=== PATIENT | female | born 1975 | race Hispanic/Latino ===

== ENCOUNTER 2019-08-07 11:41 | Emergency (ER) | payer BC ==
[2019-08-07] MEDS ORDERED: NA CHLORIDE 0.9% 1,000 ML ONE (12:12)
[2019-08-07 12:15] LABS: Urine Blood NEGATIVE (NEG); Urine Glucose NEGATIVE (NEG); Urine Protein NEGATIVE (NEG); Urine Specific Gravity 1.025 (1.005-1.030)
[2019-08-07 12:18] LABS: Absolute Lymphocytes (CBC) 2.5 K/uL (0.7-4.9); Hematocrit 33.2 % (36.0-45.0); Lymphocytes % 29.2 % (15.3-44.8); MPV 8.8 fL (7.6-11.3); RBC Red Blood Cell Count 4.52 M/uL (3.86-4.86)
[2019-08-07 12:38] LABS: ALT/SGPT 19 U/L (12-78); AST/SGOT 9 U/L (15-37); Albumin 4.1 g/dL (3.4-5.0); Alkaline Phosphatase 89 U/L (45-117); BUN Blood Urea Nitrogen 10 mg/dL (7-18); Bicarbonate 25 mmol/L (21-32); Bilirubin Direct < 0.1 mg/dL (0-0.2); Bilirubin Total 0.4 mg/dL (0.2-1.0); Glucose Level 98 mg/dL (74-106); Magnesium 2.2 mg/dL (1.8-2.4); NT PRO-BNP 58 pg/mL (<125); Potassium 3.5 mmol/L (3.5-5.1); Protein, Total 7.9 g/dL (6.4-8.2); Sodium Level 137 mmol/L (136-145); Troponin (Emerg Dept Use Only) < 0.02 ng/mL (0.0-0.045)
--- NOTE | 2019-08-07 12:51 | RAD REPORT ---
EXAM DESCRIPTION: RAD - Chest Single View - 08/07/2019 12:42 pm CLINICAL HISTORY: Chest pain;Palpitations Chest pain. COMPARISON: CHEST PA AND LAT 2 VIEW dated 02/09/2012 FINDINGS: Portable technique limits examination quality. The lungs are grossly clear. The heart is normal in size. No displaced fractures. IMPRESSION: No acute intrathoracic process suspected.
--- NOTE | 2019-08-07 13:38 | ER ---
Nurse's Notes [facility] Name: Angus Cordero Age: 43 yrs Sex: Female : 1975 Arrival Date: 08/07/2019 Time: 11:39 Bed 6 Private MD: Diagnosis: Chest pain, unspecified;Palpitations Presentation: 08/07 11:40 Presenting complaint: Patient states: Intermittent SOB and palpitations for a few jl7 months, happened this morning and HR remained elevated. Transition of care: patient was not received from another setting of care. Onset of symptoms was August 07, 2019. Risk Assessment: Do you want to hurt yourself or someone else? Patient reports no desire to harm self or others. Initial Sepsis Screen: Does the patient meet any 2 criteria? No. Patient's initial sepsis screen is negative. Does the patient have a suspected source of infection? No. Patient's initial sepsis screen is negative. Care prior to arrival: None. 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 - Social history:: Smoking status: Patient denies any tobacco usage or history of. - Ebola Screening: : No symptoms or risks identified at this time. - Family history:: not pertinent. - Hospitalizations: : No recent hospitalization is reported. Screenin:32 Abuse screen: Denies threats or abuse. Denies injuries from another. Nutritional jl7 screening: No deficits noted. Tuberculosis screening: No symptoms or risk factors identified. Fall Risk IV access (20 points). Total Silva Fall Scale indicates No Risk (0-24 pts). Assessment: 11:40 General: Appears in no apparent distress. uncomfortable, Behavior is calm, cooperative, jl7 appropriate for age. Pain: Complains of pain in anterior aspect of left upper chest Pain does not radiate. Pain currently is 0 out of 10 on a pain scale. at worst was 5 out of 10 on a pain scale. Quality of pain is described as pressure, squeezing, Pain began uknown Is intermittent. Neuro: Level of Consciousness is awake, alert, obeys commands, Oriented to person, place, time, situation. Cardiovascular: Patient's skin is warm and dry. Respiratory: Airway is patent Respiratory effort is even, unlabored, Respiratory pattern is regular, symmetrical. GI: No signs and/or symptoms were reported involving the gastrointestinal system. : No signs and/or symptoms were reported regarding the genitourinary system. EENT: No signs and/or symptoms were reported regarding the EENT system. Derm: Skin is pink, warm \T\ dry. Musculoskeletal: No signs and/or symptoms reported regarding the musculoskeletal system. 12:40 Reassessment: Patient appears in no apparent distress at this time. No changes from jl7 previously documented assessment. Patient and/or family updated on plan of care and expected duration. Pain level reassessed. Patient is alert, oriented x 3, equal unlabored respirations, skin warm/dry/pink. Vital Signs: 11:40 BP 134 / 88; Pulse 110; Resp 18 S; Pulse Ox 100% on R/A; jl7 13:00 BP 125 / 75; Pulse 82; Resp 20 S; Pulse Ox 100% on R/A; jl7 ED Course: 11:39 Patient arrived in ED. aa5 11:39 Jesus Figueroa MD is Attending Physician. me2 11:39 EKG completed in triage. Results shown to MD. aa5 11:40 Raul Garcia, ROLAN is Primary Nurse. jl7 11:40 Attending Physician role handed off by Jesus Figueroa MD rn 11:40 Chris Tirado MD is Attending Physician. rn 11:40 Patient has correct armband on for positive identification. Placed in gown. Bed in low jl7 position. Call light in reach. Side rails up X 1. clinical research monitor on. Pulse ox on. NIBP on. 11:50 Initial lab(s) drawn, by me, sent to lab. Urine collected: clean catch specimen, clear. jl7 Inserted saline lock: 20 gauge in left antecubital area, using aseptic technique. Blood collected. Patient maintains SpO2 saturation greater than 95% on room air. 12:19 Triage completed. jl7 12:33 Arm band placed on right wrist. jl7 12:42 XRAY Chest (1 view) In Process Unspecified. EDMS 13:37 Geovanny Ramirez MD is Referral Physician. rn 13:52 No provider procedures requiring assistance completed. IV discontinued, intact, jl7 bleeding controlled, No redness/swelling at site. Pressure dressing applied. Administered Medications: 12:16 Drug: NS 0.9% 1000 ml Route: IV; Rate: 1000 ml; Site: left antecubital; jl7 13:00 Follow up: IV Status: Completed infusion; IV Intake: 1000ml jl7 Intake: 13:00 IV: 1000ml; Total: 1000ml. jl7 Outcome: 13:37 Discharge ordered by MD. rn 13:52 Discharged to home ambulatory. jl7 13:52 Condition: stable 13:52 Discharge instructions given to patient, Instructed on discharge instructions, follow up and referral plans. Demonstrated understanding of instructions, follow-up care. 13:52 Patient left the ED. jl7 Signatures: Dispatcher [employer] EDMS Chris Tirado MD MD rn Calderon, Audri, RN RN aa5 Raul Garcia RN RN jl7 Jesus Figueroa MD MD ma2
--- NOTE | 2019-08-07 13:39 | EDPHYS ---
Physician Documentation [facility] Name: Angus Cordero Age: 43 yrs Sex: Female : 1975 Arrival Date: 08/07/2019 Time: 11:39 Bed 6 Private MD: ED Physician Chris Tirado HPI: 08/07 12:31 This 43 yrs old Female presents to ER via Ambulatory with complaints of Chest rn Pain. 12:31 The patient or guardian reports chest pain that is located primarily in the substernal rn area. Onset: 2 month(s) ago. The pain does not radiate. Associated signs and symptoms: Pertinent positives: palpitations, shortness of breath, Pertinent negatives: abdominal pain, cough, lower extremity swelling, syncope, vomiting. The chest pain is described as dull, a heaviness. Duration: The patient or guardian reports multiple episodes, that are intermittent. Modifying factors: The symptoms are alleviated by nothing. the symptoms are aggravated by nothing. Severity of pain: At its worst the pain was mild in the emergency department the pain is unchanged. The patient has not experienced similar symptoms in the past. Reports 2 months of chest pain/heaviness, assoc with palpitations, lasts for short amount of time and goes away on its own, also reports fatigue and nocturia for a few weeks, no fever. No meds, and has not been worked up for this in past, feels like getting worse. No syncope. . 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 - Social history:: Smoking status: Patient denies any tobacco usage or history of. - Ebola Screening: : No symptoms or risks identified at this time. - Family history:: not pertinent. - Hospitalizations: : No recent hospitalization is reported. ROS: 12:31 Constitutional: Negative for fever, chills, and weight loss, Eyes: Negative for injury, rn pain, redness, and discharge, Cardiovascular: Negative for edema, + chest pain and palpitations Respiratory: Negative for cough, wheezing, and pleuritic chest pain, Abdomen/GI: Negative for abdominal pain, nausea, vomiting, diarrhea, and constipation, : + nocturia MS/Extremity: Negative for injury and deformity, Skin: Negative for injury, rash, and discoloration, Neuro: Negative for headache, weakness, numbness, tingling, and seizure. Exam: 12:31 Constitutional: This is a well developed, well nourished patient who is awake, alert, rn and in no acute distress. Head/Face: Normocephalic, atraumatic. ENT: dry MM Cardiovascular: tachycardic, regular Respiratory: Lungs have equal breath sounds bilaterally, clear to auscultation. No increased work of breathing, no retractions or nasal flaring. Skin: Warm, dry MS/ Extremity: Pulses equal, no cyanosis. Neuro: Awake and alert, GCS 15. Cranial nerves II-XII grossly intact. Motor strength 5/5 in all extremities. Sensory grossly intact. 13:23 ECG was reviewed by the Attending Physician. rn Vital Signs: 11:40 BP 134 / 88; Pulse 110; Resp 18 S; Pulse Ox 100% on R/A; jl7 13:00 BP 125 / 75; Pulse 82; Resp 20 S; Pulse Ox 100% on R/A; jl7 MDM: 11:39 Patient medically screened. ma2 13:35 Differential diagnosis: acute pericarditis, anxiety, chest wall pain, costochondritis, rn esophagitis, gastritis, gastroesophageal reflux disease (GERD), hiatal hernia, pleurisy, pulmonary embolus, stable angina. Data reviewed: vital signs, nurses notes, lab test result(s), EKG, radiologic studies, plain films, and as a result, I will discharge patient. Test interpretation: by ED physician or midlevel provider: ECG, plain radiologic studies, CXR neg for acute abnormality. Counseling: I had a detailed discussion with the patient and/or guardian regarding: the historical points, exam findings, and any diagnostic results supporting the discharge/admit diagnosis, lab results, radiology results, the need for outpatient follow up, to return to the emergency department if symptoms worsen or persist or if there are any questions or concerns that arise at home. Response to treatment: the patient's symptoms have markedly improved after treatment, and as a result, I will discharge patient. Special discussion: I discussed with the patient/guardian in detail that at this point there is no indication for admission to the hospital. It is understood, however, that if the symptoms persist or worsen the patient needs to return immediately for re-evaluation. Based on the history and exam findings, there is no indication for further emergent testing or inpatient evaluation. I discussed with the patient/guardian the need to see the gunner mate for further evaluation of the symptoms. I discussed with the patient/guardian the need to see the driller hand for further evaluation of the symptoms. I discussed with the patient/guardian the need to see the OB Gyne specialist for further evaluation of the symptoms. 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 Will dc home, feels better, recommend antacid medication and reeval.. 08/07 11:53 Order name: Basic Metabolic Panel; Complete Time: 12:45 rn 08/07 11:53 Order name: CBC with Diff; Complete Time: 12:45 rn 08/07 11:53 Order name: LFT's; Complete Time: 12:45 rn 08/07 11:53 Order name: Magnesium; Complete Time: 12:45 rn 08/07 11:53 Order name: NT PRO-BNP; Complete Time: 12:45 rn 08/07 11:53 Order name: Troponin (emerg Dept Use Only); Complete Time: 12:45 rn 08/07 11:53 Order name: XRAY Chest (1 view); Complete Time: 13:06 rn 08/07 11:53 Order name: EKG; Complete Time: 11:55 rn 08/07 11:53 Order name: D-Dimer; Complete Time: 12:45 rn 08/07 11:53 Order name: TSH; Complete Time: 12:45 rn 08/07 11:53 Order name: T4 Free; Complete Time: 12:45 rn 08/07 12:07 Order name: Urine Dipstick--Ancillary (enter results); Complete Time: 12:45 bd 08/07 12:07 Order name: Urine --Ancillary (enter results); Complete Time: 12:45 bd 08/07 11:53 Order name: Cardiac monitoring; Complete Time: 12: rn 08/07 11:53 Order name: EKG - Nurse/Tech; Complete Time: 12: rn 08/07 11:53 Order name: IV Saline Lock; Complete Time: 12: rn 08/07 11:53 Order name: Labs collected and sent; Complete Time: 12: rn 08/07 11:53 Order name: O2 Per Protocol; Complete Time: : rn 08/07 11:53 Order name: O2 Sat Monitoring; Complete Time: 12: rn EC:23 Rate is 107 beats/min. Rhythm is regular. QRS [place] is Normal. NM interval is normal. rn QRS interval is normal. QT interval is normal. No Q waves. T waves are Normal. No ST changes noted. Clinical impression: Sinus tachycardia. Interpreted by me. Reviewed by me. Administered Medications: 12:16 Drug: NS 0.9% 1000 ml Route: IV; Rate: 1000 ml; Site: left antecubital; jl7 13:00 Follow up: IV Status: Completed infusion; IV Intake: 1000ml jl7 Disposition: 08/07/19 13:37 Discharged to Home. Impression: Chest pain, unspecified, Palpitations. - Condition is Stable. - Discharge Instructions: Nonspecific Chest Pain, Esophagitis, Pain Without a Known Cause, Palpitations. - Medication Reconciliation Form, Thank You Letter, Antibiotic Education, Prescription Opioid Use form. - Follow up: Geovanny Ramirez MD; When: As needed; Reason: Recheck today's complaints, Re-evaluation by your physician. - Problem is an ongoing problem. - Symptoms have improved. Signatures: Dispatcher [employer] EDMS Chris Tirado MD MD rn Leal, Jahala, RN RN jl7 Jesus Figueroa MD MD ma2 Corrections: (The following items were deleted from the chart) 12:38 12:31 Constitutional: This is a well developed, well nourished patient who is awake, rn alert, and in no acute distress. Head/Face: Normocephalic, atraumatic. ENT: dry MM Cardiovascular: tachycardic, regular Respiratory: Lungs have equal breath sounds bilaterally, clear to auscultation. No increased work of breathing, no retractions or nasal flaring. Skin: Warm, dry MS/ Extremity: Pulses equal, no cyanosis. Neuro: Awake and alert, GCS 15. Cranial nerves II-XII grossly intact. Motor strength 5/5 in all extremities. Sensory grossly intact. rn 13:52 13:37 08/07/2019 13:37 Discharged to Home. Impression: Chest pain, unspecified; jl7 Palpitations. Condition is Stable. Forms are Medication Reconciliation Form, Thank You Letter, Antibiotic Education, Prescription Opioid Use. Follow up: Geovanny Ramirez; When: As needed; Reason: Recheck today's complaints, Re-evaluation by your physician. Problem is an ongoing problem. Symptoms have improved. rn
--- NOTE | 2019-08-07 14:48 | EKG ---
Test Date: 2019-08-07 Test Time: 11:32:07 Director Check: MEASUREMENT RESULTS: Intervals: Rate: 107 HI: 146 QRSD: 94 QT: 338 QTc: 451 [place]: P: 74 HI: 146 QRS: 59 T: 54 INTERPRETIVE STATEMENTS: Sinus tachycardia Otherwise normal ECG No previous ECG available for comparison Electronically Signed On 08-07-19 14:48:15 HISTORICAL INTERPRETER by Jono Pratt
[2019-08-07 17:08] VITALS: BP 125/75; O2SAT 100
== END 2019-08-07 13:52 | disposition home or self-care (01) ==
LOC: ER 11:41
DX: R07.9 Chest pain, unspecified (principal); R00.2 Palpitations; Z88.1 Allergy status to other antibiotic agents
CPT/HCPCS: 93005; 85025; 80048; 36415; 83735; 81025; 85379; 80076; 84443; 81003; 84484; 84439; 83880; 71045; 96360; 99285; J7030

== ENCOUNTER 2022-07-30 08:20 | Emergency (ER) | payer BC ==
--- OUTSIDE RECORDS SUMMARY | 2022-07-30 08:23 | XMS REPORT | Continuity of Care Document ---
:1975 Author Organization [facility] t Address [address] [place] [address] Care Team Providers Name Role Phone COSMO Attending Clinician Unavailable Vero Mccoy Attending Clinician Unavailable COSMO Admitting Clinician Unavailable Vero Mccoy Admitting Clinician Unavailable Physician, No Primary or Family Admitting Clinician Unavaila ble Payers Payer Name Policy Type Policy Number Effective Date Expiration Date S ource Problems This patient has no known problems. Allergies, Adverse Reactions, Alerts Allergy Allergy Status Severity Reaction(s) Onset Inactive Treating Comm ents Source Name Type Date Date Clinician ciproflo DA Active SV 2020-0 [facility] xacin 6-01 Clear 00:00: [address] ciproflo DA Active SV RASH AND 2020-0 [facility] xacin WHEEZING 6- Clear 00:00: [address] Medications This patient has no known medications. Procedures This patient has no known procedures. Encounters Start End Encounter Admission Attending Care Care Encounter Source Date/Time Date/Time Type Type Clinicians Facility Department ID 2021-07-21 2021-07-21 Outpatient COSMO [facility] [id number] [place] 12:46:00 12:46:00 [facility] 2020-01-05 2020-01-05 Outpatient ELODIA Mccoy [id number] [facility] 13:54:00 13:54:[address] [address] [facility] 2020-01-05 2020-01-05 Outpatient ALEX Mccoy [facility] [id number] [facility] 09:30:00 09:30:00 Vero Peter [facility] 2019-12-17 2019-12-17 [id number] [facility] 09:00:00 09:00:00 Vero 97 [facility] 2019-12-13 2019-12-13 Outpatient RAUL Mccoy [facility] [id number] [facility] 12:00:00 12:00:00 Vero Heide [facility] Results Test Description Test Time Test Comments Results Result [facility] e Comments UTERUS,OTHER THAN 2020-01-11 PROLAPSE/THOMAS 16:04:00 --------RUN DATE: 01/14/20 [facility] PAGE 1 RUN TIME: 1301 Specimen Inquiry RUN USER: INTERFACE --------PATIENT: GLENDA RODOMI [facility] U #: [id number] AGE/SX: 44/F ROOM: [facility] RE01/08/20REG DR: Vero Mccoy MD : 75 BED: A DIS: 01/09/20 STATUS: DIS Hussain TLOC: -------- SPEC #: [id number] RECD: 01/08/20 STATUS: YONI MARC #: [id number] SAMARIA: 01/08/20- SUBM DR: Vero Mccoy MD ENTERED: 01/09/20 SP TYPE: UTERUSOTH OTHR DR: ORDERED: LEVEL V SURGICA CODES: [id number] - UTERUS, NOS PROCEDURES: LEVEL V SURGICA (Incomplete) TISSUES: UTERUS, NOS - UTERUS, CERVIX, BILATERAL FALLOPIAN TUBES AND OVARIES CLINICAL HISTORY 44 year old, bilateral complex ovarian cyst (wpd) FINAL DIAGNOSIS Uterus, cervix, bilateral fallopian tubes and ovaries, hysterectomy and bilateral salpingo-oophorectomy : - cervix - mild acute and chronic inflammation - endometrium - secretory phase - myometrium - leiomyomas, adenomyosis - uterine serosa - no pathologic alterations - right ovary - hemorrhagic corpus luteum cyst and benign endometriotic cyst - right fallopian tube - no pathologic alterations - left ovary - benign hemorrhagic cyst - left fallopian tube - no pathologic alterations CPT code(s): 31350 pkg/wpd GROSS DESCRIPTION ANATOMIC SOURCE OF TISSUE (per Requisition): Uterus, cervix, bilateral tubes and ovaries The specimen is received in a formalin-filled container, labeled with the patient's name and designated "uterus, cervix, bilateral tubes and ovaries". The specimen consists of a 225 gm, 10.0 x 6.0 x 6.0 cm uterus with cervix (3.5 x 3.5 cm with a 1.5 cm slit-like os), bilateral tubes (6.0 x 0.8 cm right and 5.5 x 0.8 cm left), and bilateral ovaries (5.5 x 5.0 x 4.0 cm right and 7.5 x 5.5 x 4.0 cm left). The serosa is ortiz-pink with red-brown petechiae. The specimen is bivalved to reveal a 4.5 x 3.0 cm ortiz-pink endometrial cavity. The endometrial thickness averages 0.1 cm. The myometrium is ortiz-pink and trabecular CONTINUED ON NEXT PAGE --------RUN DATE: 01/14/20 [facility] PAGE 2 RUN TIME: 1301 Specimen Inquiry RUN USER: INTERFACE --------SPEC #: [id number] PATIENT: GLENDA ROD #[id number] (Continued) GROSS DESCRIPTION (Continued) with three white whorled nodules ranging from 2.5 to 3.0 cm. The nodules do not display necrosis. The endocervix is ortiz-pink and corrugated. The ectocervix is white-pink and dull. The right fallopian tube is pink-purple with fimbriae. Sectioning reveals a pinpoint lumen. The right ovary is ortiz-yellow to boyd and dull. The ovary is sectioned to reveal a 3.5 cm cyst filled with red-brown fluid. The left fallopian tube is ortiz-boyd with fimbriae. Sectioning reveals a pinpoint lumen. A pedunculated paratubal cyst measuring 1.5 cm is identified. The left ovary is ortiz-pink and dull. The ovary is sectioned to reveal mucinous ortiz-yellow fluid. The inner lining is smooth. Medical Numerical Control Operator sections are submitted as follows: A1 - anterior cervix and employer relations representative section of smaller white whorled nodule, A2 - posterior cervix and employer relations representative section of small white whorled nodule, A3 - anterior endomyometrium with largest white whorled nodule, full thickness, A4 - posterior endomyometrium, full thickness, A5 - right fallopian tube and ovary, A6 - right ovarian cyst, A7 - left fallopian tube and paratubal cyst, and A8 - employer relations representative section of left ovarian cyst. vernon 01/09/20 MICROSCOPIC DESCRIPTION The cervix has a mild infiltrate of small lymphocytes, plasma cells, and neutrophils. The endometrium is composed of even to haphazardly spaced glands with mild nuclear stratification and few mitotic figures. The myometrium contains foci of adenomyosis and leiomyomas without atypia. The uterine serosa is unremarkable. The right ovary has a hemorrhagic corpus luteum cyst and a benign endometriotic cyst. The left ovary has a benign hemorrhagic cyst. The bilateral fallopian tubes have intact architecture and are lined by serous epithelium without cytologic atypia. paul/maria d Signed Yvette Butts 01/11/20 1604 -------- END OF REPORT HGB HCT 2020-01-09 06:15:00 Test Item Value Reference Range Interpretation Comme nts HEMOGLOBIN (test code = HGB) 9.8 g/dL 10.7-13.9 L HEMATOCRIT (test code = HCT) 32.5 % 32.1-42.1 N Tanesha Cabralesavirus 2019 [id number] 21:28:00 Test Item Value Reference Range Interpretation Comments Novel Coronavirus 2019 Inhouse (test Negative Negative code = COVNONPUI) Novel Coronavirus 2019 [id number] 21:27:00 Test Item Value Reference Range Interpretation Comments Novel Coronavirus 2019 Inhouse (test Negative Negative code = COVNONPUI) PROTHROMBIN [id number] 14:02:00 Test Item Value Reference Range Interpretation Comments PROTHROMBIN TIME PATIENT (test code 11.2 secs 10.4-12.4 N = PTP) THROMBOPLASTIN TIME [id number] 14:02:00 Test Item Value Reference Range Interpretation Comments THROMBOPLASTIN TIME PARTIAL (test 34.2 secs 22-38 N code = PTT) HCG SERUM [id number] 13:33:00 Test Item Value Reference Range Interpretation Comments HCG SERUM QUAL (test code = HCGQL) NEGATIVE CBC W/AUTO [id number] 13:12:00 Test Item Value Reference Range Interpretation Comments WHITE BLOOD CELL (test code = WBC) 7.5 K/mm3 6.6-12.1 N RED BLOOD CELL (test code = RBC) 4.35 M/mm3 3.45-5.01 N HEMOGLOBIN (test code = HGB) 10.6 g/dL 10.7-13.9 L HEMATOCRIT (test code = HCT) 35.0 % 32.1-42.1 N MEAN CELL VOLUME (test code = MCV) 81 fL 84.1-94.8 L MEAN CELL HGB (test code = MCH) 24.4 pg 27-35 L MEAN CELL HGB CONCETRATION (test 30.3 gm/dL 32.2-34.1 L code = MCHC) RED CELL DISTRIBUTION WIDTH (test 15.0 % 12.4-16.5 N code = RDW) PLATELET COUNT (test code = PLT) 413 K/mm3 133-385 H MEAN PLATELET VOLUME (test code = 10.9 fl 9.1-12.7 N MPV) NEUTROPHIL % (test code = NT%) 59.8 % 56.5-79.4 N LYMPHOCYTE % (test code = LY%) 27.6 % 14.3-34.3 N MONOCYTE % (test code = MO%) 7.1 % 5.1-10.4 N EOSINOPHIL % (test code = EO%) 4.3 % 0.1-3.0 H BASOPHIL % (test code = BA%) 1.1 % 0.1-1.0 H NEUTROPHIL # (test code = NT#) 4.5 K/mm3 LYMPHOCYTE # (test code = LY#) 2.1 K/mm3 MONOCYTE # (test code = MO#) 0.5 K/mm3 EOSINOPHIL # (test code = EO#) 0.32 K/mm3 BASOPHIL # (test code = BA#) 0.1 K/mm3 RBC MORPHOLOGY REQUIRED (test code NORMAL NORMAL = RBCM) PLATELET MORPHOLOGY REQUIRED (test NORMAL NORMAL code = PLTMR) - MRI PELVIS W WO [id number] 17:44:00 Patient Name: GLENDA ROD Unit No: [id number] EXAMS: CPT CODE: [id number] MRI PELVIS W WO CONT 53314 CLINICAL HISTORY: Ovarian cyst. COMPARISON: Computed tomography performed on November 18, 2019 and ultrasound examination performed on November 18, 2019. Multiplanar and multisequence MR imaging of the pelvis was performed using 1.5 Kindra magnet. Precontrast images as well as postcontrast images after administration of weight adjusted dose of gadolinium based contrast were performed. Vaginal gel was also administered. Uterus measures 7.3 x 7.2 x 7.3 cm in craniocaudad, AP, and transverse dimension. It has lobulated contours compatible with leiomyomatous involvement. Endometrium measures 10 mm in AP dimension. Junctional zone appears normal. Following uterine fibroids are noted: 1. Left lateral exophytic fibroid 3.0 x 2.7 x 2.3 cm. 2. Anterior intramural/subserosal fibroid 2.4 x 3.0 x 2.8 cm. 3. Anterior lower uterine segment subserosal fibroid 3.4 x 2.7 x 3.4 cm. Right adnexa contains 3.8 x 3.4 x 3.3 cmcystic lesion. It has intermediate signal intensity on T2-weighted images and high signal intensity on T1-weighted fat-saturated images. This is compatible with an endometrioma in this location. No additional lesion is identified in the right adnexa. Left adnexa contains a simple cyst measuring 3.3 x 3.7 x 3.7 cm. Medial and posterior to the above- mentioned simple cyst in the left adnexa extending inthe cul-de-sac, a lobulated cystic mass measuring approximately 4.8 x 4.2 x 6.0 cm is identified. It comprises of multiple components. Posterior mass containing low T2 signal intensity and high T1 signal intensity measures 3.3 x 3.3 x 3.2 cm. Additional 2 areas with intermediate T2 signal intensity and high T1 signal intensity measure 2.2 x 2.8 x 2.4 cm and 4.0 x 3.8 x 3.4 cm. Additional areas of lowT2 signal intensity suspicious for hemosiderin are also present. Findings are most likely those of endometriomas as well as a possible hemorrhage cyst considering accompanying sonographic findings. Postcontrast images demonstrate no areas of abnormal enhancement. No evidence of pelvic adenopathy is noted. Small amount of free fluid is present in the pelvis is a nonspecific finding. IMPRESSION: 1. Multiple uterine fibroids. 2. Probable endometrioma in the right adnexa. 3. Simple cyst in the left adnexa as well as a lobulated complex area most likely representing endometriomas. Other etiologies cannot be categorically excluded. Follow-up ultrasound examination to evaluate for interval change is recommended. 4. Small amount of free fluid in the pelvis. [facility] NAME: MARCELGLENDA FLOWERS Radiology Department PHYS: Vero Carballo MD [address] : 1975 AGE: 44 SEX: F [place], [place] [address] LOC: Ila.RAD PHONE #: [phone] EXAM DATE: 12/17/2019 STATUS: DEP CLI FAX #: [phone] RAD NO: Page 1 Signed Report (CONTINUED) Patient Name: Tennille ROD No: [id number] EXAMS: CPT CODE: [id number] MRI PELVIS W WO CONT 51138 (Continued) at 1744 Reported and signed by: Emmett Garcia MD CC: Vero Mccoy MD Technologist: Lesley Matamoros, RT Trnscrbd D/ (174) Martine Orig Print D/T: S: 12/18/2019 (174) [facility] NAME: MARCELGLENDA Radiology Department PHYS: Vero Carballo MD [address] : 1975 AGE: 44 SEX: F [place] [address] LOC: F.RAD PHONE #: [phone] EXAM DATE: 12/17/2019 STATUS: DEP CLI FAX #: [phone] RAD NO: Page 2 Signed Report- MRI ABDOMEN W WO [id number] 10:03:00 Patient Name: GLENDA ROD Unit No: [id number] EXAMS: CPT CODE: [id number] MRI ABDOMEN W WO CONT [id number] MRI ABDOMEN WITHOUT AND WITH CONTRAST, 12/17/2019 COMPARISON: CT abdomen dated November 18, 2019 CLINICAL HISTORY: OV CYST Technical factors: Multiplanar MR sequencing of the abdomen was performed withoutand with IV contrast administration. FINDINGS: There is a 1 cm nonenhancing cyst in the dome of the right hepatic lobe. No other hepatic lesions are seen. Bilateral breast implants are present. Spleen,pancreas, adrenals and kidneys appear within normal limits. No evidence of hydronephrosis. No free fluid or lymphadenopathy is seen. The gallbladder is present. No gallstones are visualized. No evidence of pericholecystic fluid. Abdominal aorta is normal in caliber. IMPRESSION: No acute abdominal abnormality. Small hepatic cyst. at 1003 Repo rted and signed by: Brady Willett MD CC: Vero Mccoy MD Technologist: Lesley Matamoros, RT Trnscrbd D/ (1003) [email or web address] Orig Print D/T: S: 12/18/2019 (1006) [facility] PHYS: Vero Carballo MD [address] : 1975 AGE: 44 SEX: F [place], [place] [address] LOC: Ila.RAD PHONE #: [phone] EXAM DATE: 12/17/2019 STATUS: DEP CLI FAX #: [phone] RAD NO: Page 1 Signed ReportUR HCG [id number] 09:54:00 Test Item Value Reference Range Interpretation Comments UR HCG QUAL (test NEGATIVE 1. Very di lute urine code = HCGQLU) specimens, as indicated by a lowspecific g ravity, may not contain rep resentative levels ofhCG. 2 . False negative result s may occur when the levels of hCGare below the sensi tivity level of the test. If is still suspec leonie, a first morningurine sp ecimen should be colle cted 48 hours later and tested.
[2022-07-30] MEDS ORDERED: ASPIRIN 81 MG CHEWABLE TABLET ONE (08:35)
[2022-07-30 08:56] LABS: Absolute Lymphocytes (CBC) 2.6 K/uL (0.7-4.9); Lymphocytes % 34.1 % (15.3-44.8); MCV 85.5 fL (80-100); MPV 8.6 fL (7.6-11.3); RBC Red Blood Cell Count 5.03 M/uL (3.86-4.86)
[2022-07-30 09:18] LABS: Bilirubin Total 0.5 mg/dL (0.2-1.0); Magnesium 2.1 mg/dL (1.6-2.4); Potassium 3.8 mmol/L (3.5-5.1); Protein, Total 7.9 g/dL (6.4-8.2)
--- NOTE | 2022-07-30 09:18 | RAD REPORT ---
EXAM DESCRIPTION: US - Abdomen Exam Limited - 07/30/2022 9:01 am CLINICAL HISTORY: PAIN COMPARISON: No comparisons FINDINGS: The gallbladder demonstrates no gallstones. No pericholecystic fluid or gallbladder wall t hickening. The common bile duct is normal measuring 4 mm. The liver demonstrates no findings of intrahepatic biliary dilatation. IMPRESSION: Unremarkable examination.
--- NOTE | 2022-07-30 09:25 | RAD REPORT ---
EXAM DESCRIPTION: RAD - Chest Single View - 07/30/2022 9:19 am CLINICAL HISTORY: CHEST PAIN Chest pain. COMPARISON: Chest Single View dated 08/07/2019; CHEST PA AND LAT 2 VIEW dated 02/09/2012 FINDINGS: Portable technique limits examination quality. The lungs are grossly clear. The heart is normal in size. No displaced fractures. IMPRESSION: No acute intrathoracic process suspected.
[2022-07-30] MEDS ORDERED: MAGNES/ALUMIN/SIMET 30ML UCUP ONE (09:40)
[2022-07-30] MEDS ORDERED: LIDOCAINE VISCOUS 2% SOLN 15 ML UDC ONE (09:40)
[2022-07-30] MEDS ORDERED: PANTOPRAZOLE 40 MG INJ ONE (09:40)
--- NOTE | 2022-07-30 10:00 | RAD REPORT ---
EXAM DESCRIPTION: CT - Chest For Pe Angio - 07/30/2022 9:33 am CLINICAL HISTORY: Chest pain. chest pain COMPARISON: No comparisons TECHNIQUE: CT angiogram of the pulmonary arteries was performed with MIP. All CT scans are performed using dose optimization technique as appropriate and may include automated exposure control or mA/KV adjustment according to patient size. FINDINGS: No evidence of pulmonary thromboembolism. No acute aortic finding demonstrated. The lungs are clear. No significant pericardial or pleural fluid. No concerning bony finding. IMPRESSION: No evidence of pulmonary thromboembolism. No acute lung findings.
[2022-07-30] MEDS ORDERED: METOPROLOL TAR 25 MG TAB ONE (10:34)
--- NOTE | 2022-07-30 10:59 | EDPHYS ---
Physician Documentation [facility] Name: Angus Cordero Age: 46 yrs Sex: Female : 1975 Arrival Date: 07/30/2022 Time: 08:23 Bed 11 Private MD: JULEE Physician Eric Singh HPI: 07/30 10:03 This 46 yrs old Female presents to ER via Ambulatory with complaints of Chest snw Pain. 10:03 The patient or guardian reports chest pain that is located primarily in the epigastric snw area. Onset: acutely, 4 day(s) ago, and became persistent. Onset: The symptoms/episode began/occurred acutely. The pain does not radiate. Associated signs and symptoms: Pertinent positives: gas/burping. Modifying factors: The patient symptoms are alleviated by nothing, the patient symptoms are aggravated by nothing. The chest pain is described as sharp. Duration: The patient or guardian reports multiple episodes, that are intermittent. The patient has experienced a previous episode, approximately 3 years ago. The patient has not recently seen a physician. 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 - Social history:: Smoking status: Patient denies any tobacco usage or history of. ROS: 10:08 Constitutional: Negative for fever, chills, and weight loss, Eyes: Negative for injury, snw pain, redness, and discharge, ENT: Negative for injury, pain, and discharge, Neck: Negative for injury, pain, and swelling. 10:08 Respiratory: Negative for shortness of breath, cough, wheezing, and pleuritic chest pain, Abdomen/GI: Negative for abdominal pain, nausea, vomiting, diarrhea, and constipation, Back: Negative for injury and pain, : Negative for injury, bleeding, discharge, and swelling, MS/Extremity: Negative for injury and deformity, Skin: Negative for injury, rash, and discoloration, Neuro: Negative for headache, weakness, numbness, tingling, and seizure, Psych: Negative for depression, anxiety, suicide ideation, homicidal ideation, and hallucinations. 10:08 Cardiovascular: Positive for chest pain, of the mid-sternal area. Exam: 10:02 Constitutional: This is a well developed, well nourished patient who is awake, alert, snw and in no acute distress. Head/Face: Normocephalic, atraumatic. Eyes: Pupils equal round and reactive to light, extra-ocular motions intact. Lids and lashes normal. Conjunctiva and sclera are non-icteric and not injected. Cornea within normal limits. Periorbital areas with no swelling, redness, or edema. ENT: Nares patent. No nasal discharge, no septal abnormalities noted. Tympanic membranes are normal and external auditory canals are clear. Oropharynx with no redness, swelling, or masses, exudates, or evidence of obstruction, uvula midline. Mucous membranes moist. Neck: Trachea midline, no thyromegaly or masses palpated, and no cervical lymphadenopathy. Supple, full range of motion without nuchal rigidity, or vertebral point tenderness. No Meningismus. Chest/axilla: Normal chest wall appearance and motion. Nontender with no deformity. No lesions are appreciated. Cardiovascular: Regular rate and rhythm with a normal S1 and S2. No gallops, murmurs, or rubs. Normal PMI, no JVD. No pulse deficits. Respiratory: Lungs have equal breath sounds bilaterally, clear to auscultation and percussion. No rales, rhonchi or wheezes noted. No increased work of breathing, no retractions or nasal flaring. Abdomen/GI: Soft, non-tender, with normal bowel sounds. No distension or tympany. No guarding or rebound. No evidence of tenderness throughout. Back: No spinal tenderness. No costovertebral tenderness. Full range of motion. Skin: Warm, dry with normal turgor. Normal color with no rashes, no lesions, and no evidence of cellulitis. MS/ Extremity: Pulses equal, no cyanosis. Neurovascular intact. Full, normal range of motion. Neuro: Awake and alert, GCS 15, oriented to person, place, time, and situation. Cranial nerves II-XII grossly intact. Motor strength 5/5 in all extremities. Sensory grossly intact. Cerebellar exam normal. Normal gait. Psych: Awake, alert, with orientation to person, place and time. Behavior, mood, and affect are within normal limits. Vital Signs: 08:31 BP 152 / 81; Pulse 96; Resp 17; Pulse Ox 100% ; ap3 08:38 Weight 52.16 kg; ap3 09:30 BP 122 / 80; Pulse 75; Resp 15 S; Temp 98.7(TE); Pulse Ox 100% on R/A; Pain 4/10; jl7 10:59 BP 136 / 84; Pulse 70; Resp 15; Pulse Ox 100% ; jl7 11:29 BP 126 / 94; Pulse 75; Resp 15; Pulse Ox 100% ; jl7 MDM: 08:27 Patient medically screened. snw 10:08 HEART Score: History: Slightly Suspicious (0), ECG: Non specific repolarization snw disturbance / LBTB / PM (1), Age: > 45 and < 65 years (1), Risk Factors: No Risk Factors Known (0), Troponin: < or = 1 x Normal Limit (0). The patient was given aspirin in the Emergency Department. Data reviewed: vital signs, nurses notes. Counseling: I had a detailed discussion with the patient and/or guardian regarding: the historical points, exam findings, and any diagnostic results supporting the discharge/admit diagnosis, the presence of at least one elevated blood pressure reading (>120/80) during this emergency department visit, lab results, radiology results, the need for outpatient follow up, to return to the emergency department if symptoms worsen or persist or if there are any questions or concerns that arise at home. Special discussion: Based on the patient's history, exam, and Dx evaluation, there is no indication for emergent intervention or inpatient Tx. It is understood by the patient/guardian that if the Sx's persist or worsen they need to return immediately for re-evaluation. I have referred the patient to see his PCP for further evaluation of high blood pressure. Based on the history and exam findings, there is no indication for further emergent testing or inpatient evaluation. I discussed with the patient/guardian the need to see the primary care provider for further evaluation of the symptoms. 07/30 08:29 Order name: CBC with Diff; Complete Time: 09:02 snw 07/30 08:29 Order name: Magnesium; Complete Time: 09:35 snw 07/30 08:29 Order name: Troponin HS; Complete Time: 09:35 snw 07/30 08:29 Order name: XRAY Chest (1 view); Complete Time: 09:35 snw 07/30 08:29 Order name: CMP; Complete Time: 09:35 snw 07/30 08:29 Order name: Lipase; Complete Time: 09:35 snw 07/30 08:29 Order name: EKG; Complete Time: 08:30 w 07/30 08:29 Order name: Cardiac monitoring; Complete Time: 08:42 snw 07/30 08:29 Order name: US Abdomen Limited; Complete Time: 09:35 snw 07/30 09:10 Order name: CT Chest For PE Angio; Complete Time: 10:01 w 07/30 08:29 Order name: EKG - Nurse/Tech; Complete Time: 08:31 w 07/30 08:29 Order name: IV Saline Lock; Complete Time: 08:42 w 07/30 08:29 Order name: Labs collected and sent; Complete Time: 08:42 w 07/30 08:29 Order name: O2 Per Protocol; Complete Time: 08:36 w 07/30 08:29 Order name: O2 Sat Monitoring; Complete Time: 08:36 snw EC:30 Rate is 83 beats/min. Rhythm is regular. QRS [place] is Normal. AR interval is normal. QRS snw interval is normal. QT interval is normal. No Q waves. T waves are Normal. No ST changes noted. Clinical impression: Normal ECG. Administered Medications: 08:35 Drug: Aspirin Chewable Tablet 324 mg Route: PO; jl7 09:00 Follow up: Response: No adverse reaction jl7 09:28 Drug: ProTONIX (pantoprazole) 40 mg Route: IVP; Site: right antecubital; jl7 10:47 Follow up: Response: No adverse reaction ap3 09:30 Drug: GI Cocktail without - (Maalox Suspension 30 ml, Lidocaine Liquid 2 % 15 jl7 ml) Route: PO; 10:00 Follow up: Response: Pain is decreased jl7 10:47 Follow up: Response: No adverse reaction ap3 10:47 Drug: Metoprolol 12.5 mg Route: PO; ap3 11:00 Follow up: Response: No adverse reaction jl7 Disposition Summary: 07/30/22 10:59 Discharge Ordered Location: Home snw Condition: Stable snw Diagnosis - Chest pain, unspecified snw Followup: snw - With: Emergency Department - When: As needed - Reason: Worsening of condition Followup: snw - With: Private Physician - When: 5 - 6 days - Reason: Recheck today's complaints, Continuance of care, Re-evaluation by your physician Discharge Instructions: - Discharge Summary Sheet snw - Nonspecific Chest Pain, Adult snw - Gastroesophageal Reflux Disease, Adult snw - Hypertension, Adult snw - How to Take Your Blood Pressure, [id number] snw - Aspirin and Your Heart snw - Form - Blood Pressure Record Sheet snw Forms: - Medication Reconciliation Form snw - Thank You Letter snw - Work release form snw - Antibiotic Education snw - Prescription Opioid Use snw Prescriptions: - metoprolol succinate 25 mg Oral tablet extended release 24 hr - take 1 tablet by ORAL route once daily; 90 tablet; Refills: 0, Product snw Selection Permitted - Protonix 40 mg Oral Tablet - take 1 tablet by ORAL route once daily; 30 tablet; Refills: 0, Product snw Selection Permitted Signatures: Dispatcher [employer] Renata Muñoz, MEN'S BASKETBALL COACH-C MEN'S BASKETBALL COACH-Csnw Raul Garcia, RN RN jl7 Nicole Lindquist RN RN ap3
--- NOTE | 2022-07-30 10:59 | ER ---
Nurse's Notes [facility] Name: Angus Cordero Age: 46 yrs Sex: Female : 1975 Arrival Date: 07/30/2022 Time: 08:23 Bed 11 Private MD: Diagnosis: Chest pain, unspecified Presentation: 07/30 08:31 Chief complaint: Patient states: she has been having mid to left chest tightness, where ap3 it feels like a pill is stuck and sometimes it feels like "something is squeezing my heart" for approx 8 days. Coronavirus screen: At this time, the client does not indicate any symptoms associated with coronavirus-19. Ebola Screen: No symptoms or risks identified at this time. Initial Sepsis Screen: Does the patient meet any 2 criteria? No. Patient's initial sepsis screen is negative. Does the patient have a suspected source of infection? No. Patient's initial sepsis screen is negative. Risk Assessment: Do you want to hurt yourself or someone else? Patient reports no desire to harm self or others. Onset of symptoms was July 22, 2022. 08:31 Method Of Arrival: Ambulatory ap3 08:31 Acuity: JAH 3 ap3 Triage Assessment: 08:34 General: Appears uncomfortable, Behavior is cooperative, appropriate for age. Pain: ap3 Complains of pain in anterior aspect of left upper chest and mid-sternal area Quality of pain is described as crampy, squeezing, "like something is stuck" Pain began approx 8 days ago. Neuro: Level of Consciousness is awake, alert, obeys commands, Oriented to person, place, time, situation, Moves all extremities. Gait is steady, Speech is normal. Cardiovascular: Reports chest pain, Patient's skin is warm and dry. Respiratory: Airway is patent Respiratory effort is even, unlabored, Respiratory pattern is regular, symmetrical. 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 - Social history:: Smoking status: Patient denies any tobacco usage or history of. Screenin:35 [facility] ED Fall Risk Assessment (Adult) History of falling in the last 3 months, ap3 including since admission No falls in past 3 months (0 pts). Abuse screen: Denies threats or abuse. Nutritional screening: No deficits noted. Tuberculosis screening: No symptoms or risk factors identified. Assessment: 08:30 General: Appears in no apparent distress. uncomfortable, Behavior is calm, cooperative, jl7 appropriate for age. Pain: Complains of pain in epigastric area and right upper quadrant Pain does not radiate. Pain currently is 4 out of 10 on a pain scale. Quality of pain is described as pressure, Pain began x8 days Is intermittent. Neuro: Level of Consciousness is awake, alert, obeys commands, Oriented to person, place, time, situation. Cardiovascular: Patient's skin is warm and dry. Respiratory: Airway is patent Respiratory effort is even, unlabored, Respiratory pattern is regular, symmetrical. GI: Abdomen is non-distended, Patient currently denies diarrhea, nausea, vomiting. Derm: Skin is pink, warm \\T\\ dry. 08:36 Pain: Pain does not radiate. ap3 09:30 Reassessment: Patient appears in no apparent distress at this time. No changes from jl7 previously documented assessment. Patient and/or family updated on plan of care and expected duration. Pain level reassessed. Patient is alert, oriented x 3, equal unlabored respirations, skin warm/dry/pink. 10:30 Reassessment: Patient appears in no apparent distress at this time. Patient and/or jl7 family updated on plan of care and expected duration. Pain level reassessed. Patient is alert, oriented x 3, equal unlabored respirations, skin warm/dry/pink. Reports mild decrease in pain, dulled after medication Patient states symptoms have improved. Vital Signs: 08:31 BP 152 / 81; Pulse 96; Resp 17; Pulse Ox 100% ; ap3 08:38 Weight 52.16 kg; ap3 09:30 BP 122 / 80; Pulse 75; Resp 15 S; Temp 98.7(TE); Pulse Ox 100% on R/A; Pain 4/10; jl7 10:59 BP 136 / 84; Pulse 70; Resp 15; Pulse Ox 100% ; jl7 11:29 BP 126 / 94; Pulse 75; Resp 15; Pulse Ox 100% ; jl7 ED Course: 08:23 Patient arrived in ED. ap3 08:23 Renata Silverman FNP-C is [facility]. ap3 08:31 Raul Garcia, ROLAN is Primary Nurse. jl7 08:31 EKG done, by ED staff, reviewed by Renata MOTLEY. jl7 08:33 Triage completed. ap3 08:35 Patient maintains SpO2 saturation greater than 95% on room air. ap3 08:35 Arm band placed on right wrist. ap3 08:35 Patient has correct armband on for positive identification. Placed in gown. Bed in low ap3 position. Call light in reach. Adult w/ patient. Pulse ox on. NIBP on. Door closed. Noise minimized. 08:43 Initial lab(s) drawn, by me, sent to lab. Inserted saline lock: 20 gauge in right jl7 antecubital area, using aseptic technique. Blood collected. 09:02 US Abdomen Limited In Process Unspecified. EDMS 09:21 XRAY Chest (1 view) In Process Unspecified. EDMS 09:34 CT Chest For PE Angio In Process Unspecified. EDMS 11:00 Eric Singh MD is Attending Physician. snw 11:29 No provider procedures requiring assistance completed. IV discontinued, intact, jl7 bleeding controlled, No redness/swelling at site. Pressure dressing applied. Administered Medications: 08:35 Drug: Aspirin Chewable Tablet 324 mg Route: PO; jl7 09:00 Follow up: Response: No adverse reaction jl7 09:28 Drug: ProTONIX (pantoprazole) 40 mg Route: IVP; Site: right antecubital; jl7 10:47 Follow up: Response: No adverse reaction ap3 09:30 Drug: GI Cocktail without - (Maalox Suspension 30 ml, Lidocaine Liquid 2 % 15 jl7 ml) Route: PO; 10:00 Follow up: Response: Pain is decreased jl7 10:47 Follow up: Response: No adverse reaction ap3 10:47 Drug: Metoprolol 12.5 mg Route: PO; ap3 11:00 Follow up: Response: No adverse reaction jl7 Medication: 08:35 VIS not applicable for this client. ap3 Outcome: 10:59 Discharge ordered by . snw 11:29 Discharged to home ambulatory. jl7 11:29 Condition: stable 11:29 Discharge instructions given to patient, Instructed on discharge instructions, follow up and referral plans. medication usage, Demonstrated understanding of instructions, follow-up care, medications, Prescriptions given X 2. 11:30 Patient left the ED. jl7 Signatures: Dispatcher [employer] EDRenata Forbes, TURBINE ENGINE ASSEMBLER-C TURBINE ENGINE ASSEMBLER-Csnw Raul Garcia RN RN jl7 Nicole Lindquist RN RN ap3
[2022-07-30 11:47] VITALS: O2SAT 100
[2022-07-30 11:53] VITALS: TEMP 98.7
[2022-07-30 12:04] VITALS: BP 126/94
--- NOTE | 2022-08-01 14:25 | EKG ---
Test Date: 2022-07-30 Test Time: 08:29:11 Wheel Mill Operator: AJIT MEASUREMENT RESULTS: Intervals: Rate: 83 VT: 146 QRSD: 86 QT: 376 QTc: 441 [place]: P: 51 VT: 146 QRS: 49 T: 60 INTERPRETIVE STATEMENTS: Normal sinus rhythm Normal ECG Compared to ECG 08/07/2019 11:32:07 Sinus tachycardia no longer present Electronically Signed On 08-01-22 14:23:22 MARKETING DATABASE ANALYST by Jono Pratt
== END 2022-07-30 11:30 | disposition home or self-care (01) ==
LOC: ER 08:20
DX: R07.89 Other chest pain (principal); Z88.1 Allergy status to other antibiotic agents
CPT/HCPCS: 93005; 85025; 36415; 83735; 84484; 83690; 80053; 71275; 71045; 76705; 96374; 99285; Q9967; C9113